=== PATIENT | male | born 1970 | race Caucasian/White ===

== ENCOUNTER 2016-12-28 14:41 | Emergency (ER) | payer MEDICARE ==
[~2016-12-28] VITALS: Ht 180.3 cm; Wt 84.9 kg
[2016-12-28 14:52] VITALS: Ht 180.3 cm; Wt 84.9 kg
[2016-12-28] MEDS ORDERED: LIOT25TA2 (15:04)
--- OUTSIDE RECORDS SUMMARY | 2016-12-28 15:07 | XMS REPORT ---
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
--- OUTSIDE RECORDS SUMMARY | 2016-12-28 15:07 | XMS REPORT ---
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
[2016-12-28] MEDS ORDERED: CALA180L2 TOP (15:13)
[2016-12-28] MEDS ORDERED: MAGN500C4 PO (15:13)
[2016-12-28] MEDS ORDERED: ASCO10007 PO (15:13)
[2016-12-28] MEDS ORDERED: DIPH25CA84 PO (15:13)
--- NOTE | 2016-12-28 16:09 | NUR ---
DR RIOS WITH PT
--- NOTE | 2016-12-28 16:24 | ERPDOC ---
Departure Disposition Decision Date: December 28, 2016 Disposition Decision Time: 16:27 Disposition: 01 DISCHARGED HOME, SELF-CARE Impression Impression Impression: Primary Impression: Dermatitis due to plants, including poison ernestina, sumac, and oak Severity: Moderate Condition: Stable Seen By: Physician only Patient Instructions: Poison Ernestina (ED) Problems/Meds/Labs Reviewed?: Yes Medications reviewed and manag: Yes Additional Instructions: Prednisone 10 mg tab. 3 tablets daily for 3 days, 2 tablets daily for 3 days, 1 tablet daily for 3 days. Zantac 150 milligrams by mouth twice a day. Claritin 10 mg daily. BETAMETHASONE steroid cream to be applied to worst areas 3 times a day. Follow up care ordered?: Yes Mental Status: Alert, Oriented Scripts Permethrin (Elimite) 60 Gm Cream..g. 60 G TOP O, #1 TUBE Prov: ILIANA RIOS MD 12/28/16 Cephalexin (Keflex) 500 Mg Capsule 2 CAP PO BID, #40 CAP Prov: ILIANA RIOS MD 12/28/16 Loratadine (Claritin) 10 Mg Tab.rapdis 1 TAB PO DAILY, #30 TAB Prov: ILIANA RIOS MD 12/28/16 Fluticasone Propionate (Cutivate 0.5 mg/mL Cream) 30 Gm Cream..g. 1 APPLIC TOP QID for RASH, #60 GM 1 Refill Prov: ILIANA RIOS MD 12/28/16 Ranitidine HCl (Zantac) 150 Mg Tablet 150 MG PO BID for ACID REFLUX, #60 TAB Take 1 tablet, by mouth, 2 times a day. Prov: ILIANA RIOS MD 12/28/16 Prednisone (Prednisone) 10 Mg Tablet 0 PO TAPERQD, #18 TAB 30 mg daily x3 days 20 mg daily x3 days 10 mg daily x2 days Prov: ILIANA RIOS MD 12/28/16 HPI - Skin General General Chief Complaint: Skin Rash/Abscess Stated Complaint: RASH ON ARMS/LEGS Time Seen by Provider: 16:02 HPI - Skin General Initial Comments 46-year-old gentleman with rash on legs and arms. He has been working in the yard and transplant strawberries. He'll carefully and did not see any poison ernestina or sumac or oak, but when he got up to next morning he was itching in the extremities. He also has dogs sleep in his bed and they were out in the weeds with him. He has noticed some mites, but has not had any bites that he knows of , no tics. They do use [employer] to keep tics off the dogs. No fevers or chills , no infection. He has tried everything he can think of to control the itching including calamine lotion, Benadryl cream, Clorox water, etc. Allergies: Coded Allergies: No Known Allergies (Unverified , 12/28/16) Past History Past Medical History Pt denies signifigant PMH Surgical History Denies Surgeries Family History Family PMH: FOUND: hypertension Social History Smoking Status: Never smoker Record Review Pertinent history updated: Yes Review of Systems Integumentary Skin: see HPI All other Systems All Other Systems: Reviewed and Negative Physical Exam General General Nourishment: well nourished, well developed, appears stated age Distress Description Patient is actively itching under his arms and forearm General Body Habitus: well groomed Vitals and Pain First Documented Vital Signs Date Time Temp Pulse Resp B/P Pulse Ox O2 Delivery O2 Flow Rate FiO2 12/28/16 14:52 98.4 73 16 129/81 100 Room Air Weight: Kilograms: 84.900 Height (feet): 5 Height (inches): 11.00 Triage Pain Scale: Normal Exams: Head: Normocephalic w/o trauma Chest/Resp: Clear all chow, with good airflow, and symmetry bilaterally CV: Regular rate and rhythm, without murmur or gallop, Pulses 2+ all extremities, capillary refill, <2 seconds all ext., no pedal edema noted Abdomen: Bowel sounds positive, soft, non-tender, non-distended, no hepatosplenomegaly, masses or bruits noted Neurologic: Patient is alert, and oriented, cranial nerves, motor/sensory/ cerebellar, exams w/o gross deficits, to observation Psychiatric: Patient exhibits, appropriate attention, emotion and affect Differential Diagnoses Considering: Abrasion, Chemical Burn, Thermal Burn, Cellulitis, Contact Dermatitis, Folliculitis, Hives/Urticaria, Poison Ernestina Dermatitis, Tick-borne Illness Progress Progress Progress This looks to be a poison ernestina type dermatitis. He does have a large patch in of the right elbow. Solu-Medrol 125 IM and prednisone worsen taper starting at 30 mg, and tapering down by 10 mg every third day. Claritin 10 mg daily, Zantac 150 twice a day. Steroid cream to be applied 3-4 times a day to the worst areas. Recommend he stop using harsh abrasives or soaps. He is to wash his shoes and clothes in a heavy detergent as well as bedsheets. Recommended dogs be examined. If he is developing bites from mites, he can use Elimite. At this point I see no signs of cellulitis, however underneath a hives, he may be developing up from scratching. I gave him a prescription of Keflex 500 mg 2 tabs twice a day to be used if he starts to develop infection. If he starts antibiotic he will finish the antibiotic. ILIANA RIOS MD December 28, 2016 16:24
[2016-12-28] MEDS ORDERED: RANI150T12 PO (16:32)
[2016-12-28] MEDS ORDERED: PERM60CR19 TOP (16:32)
[2016-12-28] MEDS ORDERED: LORA10TA PO (16:32)
[2016-12-28] MEDS ORDERED: CEPH-583 PO (16:32)
[2016-12-28] MEDS ORDERED: PRED10TA PO (16:32)
[2016-12-28] MEDS ORDERED: FLUT30CR3 TOP (16:32)
[2016-12-28 17:15] VITALS: BP 129/81; PULSE 73; RESP 16; TEMP 98.4; O2SAT 100
== END 2016-12-28 17:15 | disposition home or self-care (01) ==
LOC: ED 14:41
DX: L23.7 Allergic contact dermatitis due to plants, except food (principal)
CPT/HCPCS: 96372; 99283; J2930